=== PATIENT | male | born 1965 | race Caucasian/White ===

== ENCOUNTER 2017-02-14 21:39 | Emergency (ER) | payer BC ==
[~2017-02-14] VITALS: Ht 190.5 cm; Wt 117.9 kg
[2017-02-14 21:51] VITALS: BP 133/87
--- NOTE | 2017-02-14 22:18 | NUR ---
PT AYDIN ALS. TAKEN TO BED 6
--- NOTE | 2017-02-14 22:20 | NUR ---
52 Y/O M W/C/O R LOWER ABD PAIN, N/V X TODAY. PT DENIES ANY FEVER, CHILLS OR DIARRHEA. PT STATES PAIN IS 10/10. ER MD MADE AWARE, PT ON MONITOR.
--- NOTE | 2017-02-14 22:53 | NUR ---
Dr. Bright evaluating patient at bedside.
[2017-02-14] MEDS ORDERED: KETOROLAC 30 MG/ML VIAL IVP ONE (23:00)
[2017-02-14] MEDS ORDERED: NACL 0.9% 500 ML IV ONE ×2 (23:00)
[2017-02-14] MEDS ORDERED: ONDANSETRON 4 MG/2 ML VIAL IVP ONE (23:00)
[2017-02-15 01:05] VITALS: BP 143/86
--- NOTE | 2017-02-15 01:05 | NUR ---
Patient discharged with v/s stable. Written and verbal after care instructions given and explained. Patient alert, oriented and verbalized understanding of instructions. Ambulatory with steady gait. All questions addressed prior to discharge. ID band removed. Patient advised to follow up with PMD OR RETURN TO ER IF CONDITION WORSENS. Rx of NORCO, ZOFRAN AND MOTRIN given. Patient educated on indication of medication including possible reaction and side effects. Opportunity to ask questions provided and answered.
== END 2017-02-15 01:05 | disposition home or self-care (01) ==
LOC: MED 21:39
DX: N20.0 Calculus of kidney (principal); K59.00 Constipation, unspecified
CPT/HCPCS: 74176; 81002; 96361; 96374; 96375; 99285; J1885; J2405; J7030